=== PATIENT | male | born 1975 | race Caucasian/White ===

== ENCOUNTER 2019-09-07 19:05 | Emergency (ER) | payer OTHER, SELFPAY ==
[~2019-09-07 19:05] MED LIST: ASPI-1012 PO; BENZ-51 PO; DIGO-44 PO; DOXY100C2 PO; ENAL2.5T PO; ESCI10TA54 PO; FURO40TA5 PO; GLIM4TAB36 PO; GUAI5SYR4 PO; IPRA3AMP24 IH; METO25TA6 PO
[2019-09-07 21:32] LABS: BASOPHILS % (AUTO) 0.1 % (0.0-5.0); EOSINOPHILS % (AUTO) 0.6 % (0.0-8.0); HEMATOCRIT 39.6 % (42-54); LYMPHOCYTES % (AUTO) 22.7 % (21.0-51.0); MEAN CORPUSCULAR HEMOGLOBIN 20.9 pg (27.0-33.0); MEAN CORPUSCULAR HGB CONC 31.1 g/dL (32.0-36.0); MEAN CORPUSCULAR VOLUME 67.3 fL (79-99); NEUTROPHILS % (AUTO) 68.2 % (40.0-77.0); PLATELET COUNT (AUTO) 225 K/uL (130-400); RED BLOOD CELL COUNT(AUTO) 5.88 MIL/uL (4.50-6.20); RED CELL DISTRIBUTION WIDTH 19.5 % (11.0-15.5); WHITE BLOOD COUNT (AUTO) 8.3 K/uL (4.8-10.8)
[2019-09-07 21:48] LABS: CREATININE 1.3 mg/dL (0.5-1.5); POTASSIUM 3.8 mmol/L (3.5-5.1)
[2019-09-07 21:51] LABS: INR 2.55 (0.85-1.15); PARTIAL THROMBOPLASTIN TIME 37.7 SEC (26.3-35.5); PROTHROMBIN TIME 26.6 SEC (9.6-11.6)
[2019-09-07 21:52] LABS: ALBUMIN 3.5 g/dL (3.5-5.0); BILIRUBIN,TOTAL 0.7 mg/dL (0.2-1.0); TOTAL PROTEIN, SERUM 8.2 g/dL (6.0-8.3)
== END 2019-09-07 22:55 ==
LOC: EDH 19:05
DX: T82.598A Other mechanical complication of other cardiac and vascular devices and implants, initial encounter (principal); R05 Cough; Z20.828 Contact with and (suspected) exposure to other viral communicable diseases; E11.9 Type 2 diabetes mellitus without complications; I10 Essential (primary) hypertension; Z95.810 Presence of automatic (implantable) cardiac defibrillator; Z79.01 Long term (current) use of anticoagulants
CPT/HCPCS: 36415; 71045; 80053; 83880; 85025; 85610; 85730; 87804 ×2; 99284; U0003